=== PATIENT | male | born 1955 | race American Indian/Alaskan Native ===

== ENCOUNTER 2018-01-13 09:14 | Outpatient (CLI) | payer OTHER ==
--- NOTE | 2018-01-13 13:24 | XRay Report ---
BILATERAL KNEES, 2 VIEWS History: Knee pain. Findings: Severe tricompartmental osteoarthritic changes are identified in the right knee. Left knee is within normal limits. The soft tissues are unremarkable. Impression: Advanced degenerative changes in the right knee.
== END 2018-01-13 09:15 | disposition home or self-care (01) ==
LOC: XRAY 09:14
PROVIDERS: ATTEND Internal Medicine
DX: Z02.71 Encounter for disability determination (principal); M17.0 Bilateral primary osteoarthritis of knee; Z90.49 Acquired absence of other specified parts of digestive tract

== ENCOUNTER 2020-08-08 13:09 | Outpatient (CLI) | payer MEDICARE ==
--- NOTE | 2020-08-08 15:23 | Cat Scan Report ---
CT lumbar spine without contrast INDICATION: LUMBAR SPONDYLOSIS. TECHNIQUE: Axial imaging performed through the lumbar spine without the use of contrast. Sagittal a nd coronal reconstructed images were also reviewed. All CT scans at this location are performed usin g CT dose reduction for ALARA by means of automated exposure control. COMPARISON: None FINDINGS: Alignment: There is fixed grade 1 anterolisthesis of L4 on L5. Bones: There is a posterior construct spanning L4-S1. The bilateral S1 pedicle screws are fractured, both near the level of the cable construct. Moderate multilevel discogenic DJD and facet arthropathy is present. Posterior laminectomy changes are present at L4-5. There are also degenerative changes in the SI joints with partial ankylosis on the right. Soft tissues: No acute or significant incidental soft tissue abnormality. T11/T12-L1/2: No significant disc bulge, canal stenosis, or foraminal stenosis at any of these levels . L2/3: Moderate discogenic DJD and facet arthropathy with small posterior disc/osteophyte complex and ligamentum flavum hypertrophy. Mild central canal stenosis and also right greater than left foraminal stenosis. L3/4: Evaluation is limited by streak artifact. There is discogenic DJD and facet arthropathy with mi ld bilateral foraminal stenosis. L4/5: Partial bony ankylosis with no canal or foraminal stenosis identified. L5/S1: Partial bony ankylosis with no gross foraminal stenosis identified. The canal is suboptimally evaluated due to streak artifact. IMPRESSION: 1. Posterior construct spanning L4-S1 with fracture of both S1 pedicle screws. 2. Multilevel spondylosis as above. Signer Name: Anoop Suggs MD Signed: 08/08/2020 3:18 PM Workstation Name: [facility] PlanetFORMERLY [id number]
== END 2020-08-08 13:10 | disposition home or self-care (01) ==
LOC: CT 13:09
PROVIDERS: ATTEND Specialist
DX: M47.816 Spondylosis without myelopathy or radiculopathy, lumbar region (principal); M51.36 Other intervertebral disc degeneration, lumbar region; M43.27 Fusion of spine, lumbosacral region; M48.061 Spinal stenosis, lumbar region without neurogenic claudication
CPT/HCPCS: 72131